=== PATIENT | female | born 1970 | race Two or more races ===

== ENCOUNTER 2024-05-24 13:20 | Outpatient (CLI) | payer MEDICAID ==
[2024-05-24] MEDS ORDERED: iohexol 300mg/ml 100ml inj. ONE (13:43)
== END 2024-05-24 23:59 | disposition home or self-care (01) ==
LOC: RAD 13:20
PROVIDERS: ATTEND Internal Medicine
DX: D17.71 Benign lipomatous neoplasm of kidney (principal); M43.16 Spondylolisthesis, lumbar region; Q44.5 Other congenital malformations of bile ducts; N28.89 Other specified disorders of kidney and ureter; K57.30 Diverticulosis of large intestine without perforation or abscess without bleeding
CPT/HCPCS: 74178; Q9967